=== PATIENT | female | born 1955 | race African-American/Black ===

== ENCOUNTER 2019-01-31 06:51 | Day surgery (SDC) | payer BC ==
[~2019-01-31] VITALS: Ht 165.1 cm; Wt 93.0 kg
[2019-01-31] MEDS ORDERED: ASPIRIN/SOD BICARB/CITRIC ACID 324MG TAB EFF ONE (07:56)
[2019-01-31] MEDS ORDERED: [UNRECOGNIZED DRUG - OTHER] PO (08:03)
[2019-01-31] MEDS ORDERED: GREE1CAP PO (08:03)
[2019-01-31] MEDS ORDERED: CALC-861 MT (08:03)
[2019-01-31] MEDS ORDERED: SIME125C PO (08:03)
[2019-01-31] MEDS ORDERED: CYAN250010 MT (08:03)
[2019-01-31] MEDS ORDERED: LACT1CAP68 PO (08:03)
[2019-01-31] MEDS ORDERED: BLAC540C4 PO (08:03)
[2019-01-31] MEDS ORDERED: MAGNESIUM PO (08:03)
[2019-01-31] MEDS ORDERED: ASCO-339 MT (08:03)
[2019-01-31] MEDS ORDERED: POTA2TAB18 PO (08:03)
[2019-01-31] MEDS ORDERED: ASPI-1393 MT (08:03)
[2019-01-31] MEDS ORDERED: D3 PO (08:03)
[2019-01-31] MEDS ORDERED: SIMV10TA6 MT (08:03)
[2019-01-31] MEDS ORDERED: FISH MT (08:04)
[2019-01-31] MEDS ORDERED: IODIXANOL 320MG/ML 100 ML BOTTLE IV ONE (08:10)
[2019-01-31] MEDS ORDERED: LIDOCAINE HCL 1% 20ML VIAL (Pyxis) INJ ONE (08:10)
[2019-01-31] MEDS ORDERED: FENTANYL CITRATE/PF 50MCG/ML 2ML VIAL ONE (08:20)
[2019-01-31] MEDS ORDERED: MIDAZOLAM HCL 2 MG/2 ML VIAL ONE (08:20)
[2019-01-31] MEDS ORDERED: ONDANSETRON HCL 4MG/2ML INJ IV PRN (09:00)
[2019-01-31] MEDS ORDERED: ACETAMINOPHEN 325MG TABLET PO PRN (09:00)
[2019-01-31] MEDS ORDERED: MORPHINE SULFATE 2 MG/ML CPJ (NOT FOR IM USE) IV PRN (09:00)
[2019-01-31] MEDS ORDERED: NICARDIPINE 100MCG/ML 10ML VIAL (CATH LAB) IV ONE (11:09)
[2019-01-31] MEDS ORDERED: NITROGLYCERIN 50MCG/ML 10ML VIAL (CATH LAB) IV ONE (11:09)
[2019-01-31] MEDS ORDERED: HEPARIN SODIUM 1,000 UNIT/1ML VIAL IV ONE (11:09)
== END 2019-01-31 13:00 | disposition home or self-care (01) ==
LOC: CCL 06:51
PROVIDERS: ATTEND Specialist
DX: R07.9 Chest pain, unspecified (principal); R94.39 Abnormal result of other cardiovascular function study; E78.00 Pure hypercholesterolemia, unspecified; Z82.49 Family history of ischemic heart disease and other diseases of the circulatory system; Z85.3 Personal history of malignant neoplasm of breast; Z90.12 Acquired absence of left breast and nipple; Z79.899 Other long term (current) drug therapy; Z88.0 Allergy status to penicillin
CPT/HCPCS: 93458; 99152; 99153; C1769; C1887; C1893; J1644; J2250; J3010; J3490; Q9967; G0500